=== PATIENT | female | born 1990 | race Two or more races ===

== ENCOUNTER → 2016-12-11 | Outpatient (CLI) | payer OTHER ==
[~2016-12-11] MED LIST: CIPRO500 MG PO; Colace PO; ENDOCET 5-3251 EACH PO; FERROUS SULFAT325 MG PO; Feosol PO; IBUPROFEN800 MG PO; IRON325 M1; MEDROXYPROGESTERONE; Motrin PO; NO HOME MEDS; PEPCID20 MG PO; PREDNISONE50 MG PO; PRENATAL TABLE1 EAC3 PO; PRENATAL VITAM1 EAC3 PO; PRENATAL1 EACH PO; ZOFRAN ODT8 MG PO; ZOFRAN8 MG PO
[2016-12-11 14:10] VITALS: BP 125/71
== END | disposition home or self-care (01) ==
LOC: IVINF 13:48
DX: O36.0990 Maternal care for other rhesus isoimmunization, unspecified trimester, not applicable or unspecified (principal); O20.0 Threatened abortion; Z3A.00 Weeks of gestation of pregnancy not specified
CPT/HCPCS: 96372; J2790

== ENCOUNTER 2017-03-01 16:03 | Emergency (ER) | payer OTHER ==
[~2017-03-01] VITALS: Ht 149.9 cm; Wt 64.0 kg
[2017-03-01 16:20] VITALS: BP 112/66
[2017-03-01 17:12] LABS: ADD MIUA? YES; BILIRUBIN NEGATIVE; BLOOD NEGATIVE; COLOR YELLOW ((YELLOW)); GLUCOSE (STRIP) NEGATIVE; KETONES NEGATIVE; LEUKOCYTES TRACE; NITRITE NEGATIVE; PROTEIN (STRIP) 30; SPECIFIC GRAVITY 1.023 (1.000-1.030); UROBILINOGEN 0.2 MG/DL (0.2-1.0)
[2017-03-01 17:34] LABS: BACTERIA NONE SEEN /HPF; EPITHELIAL CELLS 1+ /HPF; MUCUS 1+ /LPF; RED BLOOD CELLS 0-5 /HPF (0-5); WHITE BLOOD CELLS 0-5 /HPF (0-5)
[2017-03-01 17:35] LABS: CRYSTALS NONE SEEN
[2017-03-01 17:36] LABS: CASTS NONE SEEN /LPF
[2017-03-01 18:21] LABS: INFLUENZA A VIRAL ANTIGEN NEGATIVE; INFLUENZA B VIRAL ANTIGEN NEGATIVE
[2017-03-01] MEDS ORDERED: CLARITIN,ALAVAR10 MG PO (18:24)
== END 2017-03-01 18:31 | disposition home or self-care (01) ==
LOC: EME 16:03
PROVIDERS: Nurse Practitioner Family
DX: J30.2 Other seasonal allergic rhinitis (principal); Z33.1 Pregnant state, incidental; Z3A.21 21 weeks gestation of pregnancy
CPT/HCPCS: 81003; 87502; 87651 90; 99281; 99284

== ENCOUNTER 2017-03-28 21:10 | Outpatient (CLI) | payer OTHER ==
[~2017-03-28] VITALS: Ht 152.4 cm; Wt 67.1 kg
[~2017-03-28 21:10] MED LIST changes: +CLARITIN,ALAVAR10 MG PO
[2017-03-28] MEDS ORDERED: ZYRTEC10 M3 PO (21:47)
[2017-03-28 21:56] VITALS: BP 109/65
[2017-03-28 22:09] LABS: ADD MIUA? NO; BILIRUBIN NEGATIVE; BLOOD NEGATIVE; COLOR STRAW ((YELLOW)); GLUCOSE (STRIP) NEGATIVE; KETONES NEGATIVE; LEUKOCYTES NEGATIVE; NITRITE NEGATIVE; PROTEIN (STRIP) NEGATIVE; SPECIFIC GRAVITY 1.009 (1.000-1.030); UCUL ADDED? NO; UROBILINOGEN 0.2 MG/DL (0.2-1.0)
[2017-03-28 22:31] LABS: AMPHETAMINES QUANT VALUE 0 NG/ML; BARBITUATES QUANT VALUE 0 NG/ML; BENZODIAZEPINES QUANT VALUE 0 NG/ML; BENZODIAZEPINES, URINE SCREEN Negative (200 ng/mL); MARIJUANA QUANT VALUE 0 NG/ML; OPIATES QUANTITATIVE VALUE 0 NG/ML; PHENCYCLIDINE QUANT VALUE 0 NG/ML
== END 2017-03-28 22:55 | disposition home or self-care (01) ==
LOC: LDRP-OP → 2WEST 21:11 → LDRP-OP 08-12 10:20
PROVIDERS: Advanced Practice Midwife
DX: O26.892 Other specified pregnancy related conditions, second trimester (principal); R30.0 Dysuria; M54.5 Low back pain; Z3A.24 24 weeks gestation of pregnancy
CPT/HCPCS: 59025; 80306 90; 81003; 87086; G0378

== ENCOUNTER → 2017-04-15 | Outpatient (CLI) | payer OTHER ==
[~2017-04-15] VITALS: Ht 154.9 cm; Wt 67.0 kg
[~2017-04-15] MED LIST changes: +ZYRTEC10 M3 PO
[2017-04-15 11:00] VITALS: BP 115/72
== END | disposition home or self-care (01) ==
LOC: IVINF 10:51
DX: Z31.82 Encounter for Rh incompatibility status (principal)
CPT/HCPCS: 96372; J2790

== ENCOUNTER 2017-06-18 18:08 | Outpatient (CLI) | payer OTHER ==
[2017-06-18 18:22] VITALS: BP 115/70
== END 2017-06-18 19:20 | disposition home or self-care (01) ==
LOC: LDRP-OP → 2WEST 18:10 → LDRP-OP 08-08 00:04
DX: O36.8130 Decreased fetal movements, third trimester, not applicable or unspecified (principal); Z3A.36 36 weeks gestation of pregnancy
CPT/HCPCS: 59025; G0378

== ENCOUNTER 2017-07-01 10:16 | Inpatient (IN) | payer OTHER ==
[~2017-07-01] VITALS: Ht 149.9 cm; Wt 73.5 kg
[2017-07-02] MEDS ORDERED: IRON325 M1 PO (10:41)
[2017-07-05] MEDS ORDERED: ACYCLOVIR400 MG PO (05:27)
[2017-07-05 06:40] LABS: HEMATOCRIT 29.3 % (36.0-46.0); MCH 27.9 PG (29.0-34.0); MCHC 31.1 G/DL (30.0-36.0); MCV 89.9 FL (83-99); PLATELET COUNT 164 K/uL (156-360); RBC DIS.WIDTH-CV 21.2 % (11.8-14.6); RBC DIS.WIDTH-SD 67.8 % (39-53); RED BLOOD COUNT 3.26 M/uL (3.80-5.20); WHITE BLOOD COUNT 6.9 K/uL (4.1-10.2)
[2017-07-05 06:44] LABS: EOSINOPHIL (%) 3.3 % (0-5); EOSINOPHIL COUNT 0.2 K/uL (0-0.3); IMMATURE GRANULOCYTE (%) 0.4 % (0.0-0.7); INSTRUMENT ABS NEUTROPHIL CT 3.7 K/uL; LYMPHOCYTE COUNT 2.3 K/uL (1.0-2.8); MONOCYTE (%) 9.4 % (3-12); MONOCYTE COUNT 0.7 K/uL (0-0.8); NEUTROPHIL COUNT 3.7 K/uL (1.8-6.4)
[2017-07-05 12:08] VITALS: BP 142/86
[2017-07-05 13:00] VITALS: BP 114/72
[2017-07-05 15:12] VITALS: BP 107/70
[2017-07-05 19:35] VITALS: BP 109/70
[2017-07-05 22:25] VITALS: BP 101/65
[2017-07-06 02:35] VITALS: BP 115/61
[2017-07-06 06:49] LABS: EOSINOPHIL (%) 1.7 % (0-5); EOSINOPHIL COUNT 0.2 K/uL (0-0.3); HEMATOCRIT 27.6 % (36.0-46.0); IMMATURE GRANULOCYTE (%) 0.5 % (0.0-0.7); IMMATURE GRANULOCYTE COUNT 0.1 K/uL; LYMPHOCYTE COUNT 2.5 K/uL (1.0-2.8); MCH 29.2 PG (29.0-34.0); MCHC 32.2 G/DL (30.0-36.0); MCV 90.5 FL (83-99); MEAN PLAT.VOLUME 10.9 uM^3 (9.5-12.4); MONOCYTE (%) 10.3 % (3-12); MONOCYTE COUNT 1.1 K/uL (0-0.8); NEUTROPHIL (%) 64.1 % (45-76); PLATELET COUNT 163 K/uL (156-360); RBC DIS.WIDTH-CV 21.2 % (11.8-14.6); RBC DIS.WIDTH-SD 67.2 % (39-53); RED BLOOD COUNT 3.05 M/uL (3.80-5.20); WHITE BLOOD COUNT 10.9 K/uL (4.1-10.2)
[2017-07-06 07:39] VITALS: BP 108/68
[2017-07-06 10:47] VITALS: BP 116/78
[2017-07-06 14:37] VITALS: BP 110/73
[2017-07-06 19:00] VITALS: BP 113/74
[2017-07-06 23:00] VITALS: BP 122/78
[2017-07-07 03:42] VITALS: BP 100/60
[2017-07-07 07:49] VITALS: BP 118/81
[2017-07-07 15:10] VITALS: BP 113/76
[2017-07-07 22:46] VITALS: BP 120/72
[2017-07-08 07:42] VITALS: BP 110/70
[2017-07-08] MEDS ORDERED: ENDOCET 5-3251 EACH PO (08:54)
[2017-07-08] MEDS ORDERED: IBUPROFEN800 MG PO (08:54)
== END 2017-07-08 16:30 | disposition home or self-care (01) | DRG 765 ==
LOC: 2SOUTH → 2WEST 07-05 04:43 → 2SOUTH 07-05 08:07 → 2WEST 07-08 16:30
PROVIDERS: Obstetrics & Gynecology
DX: O34.211 Maternal care for low transverse scar from previous cesarean delivery (principal); O98.32 Other infections with a predominantly sexual mode of transmission complicating childbirth; D62 Acute posthemorrhagic anemia; N85.8 Other specified noninflammatory disorders of uterus; O99.824 Streptococcus B carrier state complicating childbirth; O77.0 Labor and delivery complicated by meconium in amniotic fluid; A60.00 Herpesviral infection of urogenital system, unspecified; Z3A.39 39 weeks gestation of pregnancy; Z80.3 Family history of malignant neoplasm of breast; Z30.2 Encounter for sterilization; Z37.0 Single live birth
CPT/HCPCS: 83030; 85025; 86900; 86901; 88307; J1100; J1200; J1580; J1885; J2274; J2405; J2765; J2790; J3010; J7050; J7120